=== PATIENT | female | born 1950 ===

== ENCOUNTER 2017-03-23 17:14 | Emergency (ER) | payer MEDICARE ==
[2017-03-23 17:20] VITALS: PULSE 59
[2017-03-23] MEDS ORDERED: Sodium Chloride 0.9% 1,000 ML IV ONE (17:39)
[2017-03-23] MEDS ORDERED: Iohexol 240 (50 ml) PO ONE (17:51)
--- NOTE | 2017-03-23 17:57 | C.PDOC ---
History Of Present Illness Patient is a pleasant 66 yr old female who is c/o intermittent midepigastric pain since . She states the pain is a 3 or 4 on 1-10 scale. She describes the pain as a "discomfort". The pain is not triggered by eating/no relation to food. No radiation of the pain. (+) N/V. No fever. Patient has an ultrasound earlier today and the patient does not have the official report w / her but believes she was told there were gallstones on the ultrasound. The patient's PMD called the ED after receiving the US report and recommends pt have a CT scan. PMD: Dr. Stephens . Time Seen by Provider: 03/23/17 17:36 Chief Complaint (Nursing): Abdominal Pain History Per: Patient Past Medical History Reviewed: Historical Data, Nursing Documentation, Vital Signs Vital Signs: Last Vital Signs Temp 97.9 F 03/23/17 17:18 Pulse 59 L 03/23/17 17:18 Resp 17 03/23/17 17:18 BP 142/73 03/23/17 17:18 Pulse Ox 98 03/23/17 18:16 - Medical History PMH: Bronchitis, CAD, HTN Denies: Chronic Kidney Disease Surgical History: CABG (X 5), Coronary Stent (X 2) - [facility] Procedures CLOSED ENDOSCOPIC BIOPSY OF LARGE INTESTINE (12/14/14) Family History: States: Diabetes - Social History Hx Tobacco Use: No Hx Alcohol Use: No Hx Substance Use: No - Immunization History Hx Tetanus Toxoid Vaccination: No Hx Influenza Vaccination: No Hx Pneumococcal Vaccination: Yes Review Of Systems Except As Marked, All Systems Reviewed And Found Negative. Constitutional: Negative for: Fever, Chills Cardiovascular: Negative for: Chest Pain Respiratory: Negative for: Shortness of Breath Gastrointestinal: Positive for: Nausea, Vomiting, Abdominal Pain Genitourinary: Negative for: Dysuria Neurological: Negative for: Weakness Physical Exam - Physical Exam Appears: Well, Non-toxic, No Acute Distress Skin: Normal Color, Warm, Dry Head: Atraumatic Eye(s): bilateral: Normal Inspection, EOMI Ear(s): Bilateral: Normal Nose: Normal Oral Mucosa: Moist Tongue: Normal Appearing Lips: Normal Appearing Teeth: Normal Dentition Gingiva: Normal Appearing Throat: Normal Neck: Normal Lymphatic: Deferred Chest: Symmetrical Cardiovascular: Rhythm Regular Respiratory: Normal Breath Sounds Gastrointestinal/Abdominal: Bowel Sounds, Soft, Tenderness (midepigastric), No Guarding, No Rebound Rectal: Deferred Back: Normal Inspection Extremity: Normal ROM Extremity: Bilateral: Atraumatic, Normal ROM Pulses: Left Radial: Normal, Right Radial: Normal Neurological/Psych: Oriented x3 ED Course And Treatment - Laboratory Results Result Diagrams: 03/23/17 17:54 03/23/17 17:54 O2 Sat by Pulse Oximetry: 98 Medical Decision Making Medical Decision Making: Initial Impression: Abdominal pain Differential diagnosis includes but is not limited to: cholecystitis, PUD, hernia, cholelithiasis Initial Plan: Will check labs, hydrate and get imaging Disposition - Disposition Disposition Time: 19:00 Condition: FAIR - Clinical Impression Clinical Impression: Abdominal pain Physician Patient Turnover Patient Signed Over To: Maximino Roberto Handoff Comments: To follow up CT scan results and dispo patient accordingly and to inform Dr. Stephens of results.
[2017-03-23] MEDS ORDERED: Sodium Chloride 0.9% 1,000 ML ONE (17:58)
[2017-03-23] MEDS ORDERED: Iohexol 240 (50 ml) ONE (17:58)
[2017-03-23 18:08] LABS: ALBUMIN 3.8 g/dL (3.5-5.0)
[2017-03-23 18:10] LABS: BASO % 0.4 % (0.0-2.0); EOS # 0.1 K/uL (0.0-0.7); EOS % 1.6 % (0.0-4.0); GFR AFRICAN-AMERICAN > 60; GFR NON-AFRICAN AMERICAN > 60; LYMPH # 2.3 K/uL (1.0-4.3); LYMPH % 35.1 % (20.0-40.0); MEAN CELL VOLUME 82.9 fL (81.0-99.0); MEAN CORPUSCULAR HEMOGLOBIN 26.3 pg (27.0-31.0); MEAN CORPUSCULAR HGB CONC 31.8 g/dL (33.0-37.0); MEAN PLATELET VOLUME 8.2 fL (7.2-11.7); MONO # 0.5 K/uL (0.0-0.8); MONO % 7.4 % (0.0-10.0); NEUT # 3.6 K/uL (1.8-7.0); NEUT % 55.5 % (50.0-75.0); RBC 4.18 Mil/uL (3.80-5.20); RED CELL DISTRIBUTION WIDTH 13.7 % (11.5-14.5); WHITE BLOOD COUNT 6.4 K/uL (4.8-10.8)
[2017-03-23 18:11] LABS: ALB/GLOB RATIO 1.3 (1.0-2.1); ALT/SGPT 30 U/L (9-52); AST/SGOT 22 U/L (14-36); BLOOD UREA NITROGEN 24 mg/dL (7-17); CALCIUM 8.6 mg/dl (8.6-10.4); LIPASE 102 U/L (23-300)
[2017-03-23 18:14] LABS: SQUAMOUS EPITHIAL 6 /hpf (0-5); URINE BACTERIA OCC (<OCC); URINE BILIRUBIN NEGATIVE (NEGATIVE); URINE BLOOD NEGATIVE (NEGATIVE); URINE CLARITY Hazy (Clear); URINE GLUCOSE (UA) 3+ mg/dL (Normal); URINE LEUKOCYTE ESTERASE 1+ Leu/uL (Negative); URINE NITRATE NEGATIVE (NEGATIVE); URINE PROTEIN 1+ mg/dL (NEGATIVE); URINE UROBILINOGEN NORMAL mg/dL (0.2-1.0)
[2017-03-23 18:19] LABS: INR 0.9; PROTHROMBIN TIME 10.4 SECONDS (9.7-12.2)
[2017-03-23 18:30] LABS: URINE COLOR YELLOW (YELLOW)
[2017-03-23 18:58] VITALS: BP 147/75; RESP 20; TEMP 97.7
[2017-03-23 19:02] VITALS: O2SAT 98
[2017-03-23] MEDS ORDERED: Iodixanol 320 MG/ML 100 ML BOTTLE IV ONE (19:50)
--- NOTE | 2017-03-23 20:38 | CT ---
EXAM: CT Abdomen and Pelvis With Intravenous Contrast CLINICAL HISTORY: 66 years old, female; Pain; Abdominal pain; Generalized; Additional info: Abd pain; Dr. Stephens recommends CT TECHNIQUE: Axial computed tomography images of the abdomen and pelvis with intravenous contrast. This CT exam was performed using one or more of the following dose reduction techniques: automated exposure control, adjustment of the mA and/or kV according to patient size, and/or use of iterative reconstruction technique. Coronal and sagittal reformatted images were created and reviewed. CONTRAST: 100 mL of visipaque administered intravenously. EXAM DATE/TIME: Exam ordered 03/23/2017 5:38 PM COMPARISON: No relevant prior studies available. FINDINGS: Lower thorax: There is mild interstitial thickening at the left lung base. ABDOMEN: Liver: Unremarkable. No mass. Gallbladder and bile ducts: There is a gallstone. No ductal dilation. Pancreas: Unremarkable. No mass. No ductal dilation. Spleen: Unremarkable. No splenomegaly. Adrenals: Unremarkable. No mass. Kidneys and ureters: There is mild asymmetric fullness of the right renal collecting system. There is a nonobstructing 3 mm calcification in the upper pole the left kidney Stomach and bowel: Unremarkable. No obstruction. No mucosal thickening. Appendix: No findings to suggest acute appendicitis. PELVIS: Bladder: Unremarkable. No mass. Reproductive: Unremarkable as visualized. ABDOMEN and PELVIS: Intraperitoneal space: Unremarkable. No free air. No significant fluid collection. Bones/joints: Patient has had a median sternotomy. No acute fracture. No dislocation. Soft tissues: There is a calcified granuloma in the subcutaneous fat of the left buttock. Vasculature: Unremarkable. No abdominal aortic aneurysm. Lymph nodes: Unremarkable. No enlarged lymph nodes. IMPRESSION: 1. Gallstone 2. Mild asymmetric fullness of the right renal collecting system. No hydroureter. No renal calculi seen. 3. Nonobstructing calcification seen in the upper pole the left kidney. 4. Interstitial thickening at the left lung base
--- NOTE | 2017-03-24 09:46 | RAD ---
PROCEDURE: CHEST RADIOGRAPH, 1 VIEW HISTORY: Abdominal pain. COMPARISON: Correlation made with concurrent CT scan abdomen pelvis which image both lung bases. FINDINGS: LUNGS: Minor left basilar atelectasis or scarring. PLEURA: No pneumothorax or pleural fluid seen. CARDIOVASCULAR: Sternotomy wires and CABG clips. Heart size normal. OSSEOUS STRUCTURES: No significant abnormalities. VISUALIZED UPPER ABDOMEN: Normal. OTHER FINDINGS: None. IMPRESSION: Minor left basilar atelectasis or scarring.
--- NOTE | 2017-03-26 16:48 | CARD ---
APPROVED REPORT EKG Measurement Heart [id number] <Conclusion> Sinus bradycardia Nonspecific T wave abnormality Abnormal ECG
== END 2017-03-23 21:07 | disposition home or self-care (01) ==
LOC: C.ER 17:14
DX: K80.80 Other cholelithiasis without obstruction (principal)
CPT/HCPCS: 71010; 74177; 80053; 81001; 83690; 84484; 85025; 85610; 85730; 86850; 86900; 96374; 99285; J7040; Q9966; Q9967

== ENCOUNTER 2019-01-01 11:12 | Observation (INO) | payer MEDICARE | END 2019-01-03 18:30 | disposition home or self-care (01) | LOC: C.ER 11:12 → C.9E 16:23 → C.6T 18:12 | PROVIDERS: ADMIT Internal Medicine | CPT/HCPCS: 36415; 71045; 74176; 76705; 80053; 81001; 82150; 82550; 82553; 82948; 83690; 83735; 84100; 84484; 85025; 85610; 85730; 93005; 96365; 96366; 96372; 96375; 99285; C9113; G0378; J1644; J2405; J2543; J7030; J7040 ==

== ENCOUNTER 2019-01-22 13:45 | Outpatient (CLI) | payer MEDICARE | END 2019-01-22 13:46 | disposition home or self-care (01) | LOC: C.RADIC 13:45 | DX: M17.0 Bilateral primary osteoarthritis of knee (principal) ==